=== PATIENT | male | born 1965 | race Caucasian/White ===

== ENCOUNTER 2021-03-19 19:06 | Inpatient (IN) | payer MEDICAID, SELFPAY ==
[~2021-03-19] VITALS: Ht 177.8 cm; Wt 84.0 kg
[2021-03-19 19:12] VITALS: BP_SYST 136
--- NOTE | 2021-03-19 19:45 | NUR ---
PT IN RADIOLOGY
--- NOTE | 2021-03-19 20:00 | NUR ---
CAME INTO THE ER AND GAVE ADMISSION ORDERS KNOWING I DID NOT HAVE INS. DR. SAHU SAID THAT ITS HIS PATIENT AND HEWANTED TO ADMIT.
--- NOTE | 2021-03-19 20:02 | NUR ---
Patient to ER bed 03 to gown for evaluation. Side rails up.
--- NOTE | 2021-03-19 20:02 | NUR ---
Note marissa in ED - 03/19/21 at 2001 by [id number] Patient to bed 3 to [facility] for evaluation. Side rails up.
--- NOTE | 2021-03-19 20:05 | NUR ---
Patient BIB by BLS/EMS from [facility]. C/O R/O DVT and eval x today. Per reported, patient had abnomal CT scan and R/O DVT and eval with US. A/O,X4, denies pain.
--- NOTE | 2021-03-19 20:14 | NUR ---
Medication reconciliation completed with information provided by facility. Any prior medication reconciliation on file was reviewed and corrected.
[2021-03-19] MEDS ORDERED: SENN-22 PO (20:17)
[2021-03-19] MEDS ORDERED: MOM PO (20:17)
[2021-03-19] MEDS ORDERED: MEGE400O4 PO (20:17)
[2021-03-19] MEDS ORDERED: ISOS30TA85 PO (20:17)
[2021-03-19] MEDS ORDERED: ACET325T PO (20:17)
[2021-03-19] MEDS ORDERED: MULT-1189 PO (20:17)
[2021-03-19] MEDS ORDERED: ZOLP5TAB2 PO (20:17)
[2021-03-19] MEDS ORDERED: DOCU-144 PO (20:17)
[2021-03-19] MEDS ORDERED: ONDA4TAB5 PO (20:17)
[2021-03-19] MEDS ORDERED: DEC4 PO (20:17)
[2021-03-19] MEDS ORDERED: HYDR-3917 PO (20:17)
[2021-03-19] MEDS ORDERED: CAS50 PO (20:17)
--- NOTE | 2021-03-19 20:30 | NUR ---
# 20 gauge angiocath placed to RAC. Use of asceptic technique. Opsite placed over site. Blood return noted. Blood for lab drawn from site. Flushed with 10 cc of normal saline. No evidence of infiltration noted. Patient tolerated well.
--- NOTE | 2021-03-19 20:33 | NUR ---
MRSA and covid swab performed at bedside
[2021-03-19 20:40] LABS: BASOPHILS % (AUTO) 0.1 % (0.0-2.0); EOSINOPHILS % (AUTO) 0.2 % (0.0-4.0); HEMATOCRIT 41.7 % (36-54); HEMOGLOBIN 13.9 g/dL (14.0-18.0); LYMPHOCYTES # (AUTO) 0.7 K/uL (1.0-5.5); MEAN CORPUSCULAR HEMOGLOBIN 31 pg (27-31); MEAN CORPUSCULAR HGB CONC 33 % (32-36); MEAN CORPUSCULAR VOLUME 92 fL (79.0-98.0); MONOCYTES # (AUTO) 0.2 K/uL (0.0-1.0); NEUTROPHILS # (AUTO) 6.8 K/uL (1.8-7.7); NEUTROPHILS % (AUTO) 87.7 % (40.0-70.0); PLATELET COUNT (AUTO) 254 K/uL (130-430); RED BLOOD CELL COUNT(AUTO) 4.53 MIL/uL (4.2-6.2); WHITE BLOOD COUNT (AUTO) 7.8 K/uL (4.8-10.8)
[2021-03-19 20:51] LABS: CALCIUM 9.1 mg/dL (8.4-11.0); CREATININE 0.67 mg/dL (0.55-1.30); POTASSIUM 4.5 mmol/L (3.5-5.1)
[2021-03-19 20:56] LABS: PROTHROMBIN TIME 10.2 SECS (9.5-12.5)
[2021-03-19 21:03] LABS: ALBUMIN 3.9 g/dL (3.4-4.8); TOTAL BILIRUBIN 0.3 mg/dL (0.0-1.0)
--- NOTE | 2021-03-19 21:34 | NUR ---
Patient will be admitted to care of [facility]. Admitted to TELE unit. Will go to room 122A. Belongings list completed. Complete and up to date summary report printed. SBAR report to be given at bedside with opportunity for questions.
--- NOTE | 2021-03-19 22:33 | NUR ---
ADMISSION NOTE Received patient from ER via gurney. Patient admitted with diagnosis of Bilateral Lower Extremity DVT. Patient is awake, alert, oriented X 4. Patient oriented to hospital room, call light, toileting, pain management and safety-teach back done. Patient informed that LORRIE Castellanos will be primary nurse and that their room number is 122A. Personal belongings checked and Belongings List documented. Call light within reach.
--- NOTE | 2021-03-19 22:35 | NUR ---
NOTES PATIENT IN BED, AWAKE, ALERT, ORIENTED, VITALS STABLE. NO PAIN AT THIS TIME. ASSESSMENT DONE AND DOCUMENTED. ORIENTED TO HIS ROOM, PHONE AND CALL LIGHT . NEEDS ATTENDED TO. SAFETY AND FALL MEASURES IN PLACED. CALL LIGHT PLACED WITHIN REACH.
[2021-03-19 22:51] VITALS: BP_SYST 122
[2021-03-20] MEDS ORDERED: ACETAMINOPHEN 325 MG TABLET PO PRN
[2021-03-20] MEDS ORDERED: MILK OF MAGNESIA 30 ML UDC PO PRN
[2021-03-20] MEDS ORDERED: ONDANSETRON 4 MG ODT TAB PO PRN
[2021-03-20] MEDS ORDERED: ZOLPIDEM TARTRATE 5 MG TABLET PO PRN
[2021-03-20] MEDS ORDERED: HYDROcodone/ACETAMIN 5-325 MG TAB (NORCO/ VICODIN) PO PRN
[2021-03-20] MEDS ORDERED: NALOXONE HCL 0.4 MG/ML AMP (NARCAN) IVP PRN
[2021-03-20] MEDS ORDERED: *LOVENOX 1MG/KG Q12H/PHARMACY XX ONE (00:15)
[2021-03-20] MEDS ORDERED: ENOXAPARIN SODIUM 80 MG/0.8 ML SYRINGE SUBCUT ONE (00:15)
--- NOTE | 2021-03-20 02:10 | NUR ---
ROUNDS PATIENT ASLEEP, RESPIRATIONS EVEN AND UNLABORED, WILL CONTINUE TO MONITOR.
--- NOTE | 2021-03-20 08:00 | NUR ---
Initial notes Awake and oriented, denies any pain or discomfort. uses urinal. Safety precaution observed. Enc to call for help as needed. Call light within reach,
[2021-03-20 08:06] VITALS: BP_SYST 107
[2021-03-20] MEDS: MEGESTROL ACETATE 400 MG/10 ML UDC PO SCH ×2 (08:27→20:28)
[2021-03-20] MEDS: DECADRON 4 MG TABLET PO SCH ×2 (08:27→20:28)
[2021-03-20] MEDS: MULTIVITS,CA,MINERALS/IRON/FA 1 TABLET PO SCH (08:27)
[2021-03-20] MEDS: DOCUSATE SODIUM 100 MG CAPSULE PO SCH ×2 (08:27→20:28)
[2021-03-20] MEDS: ISOSORBIDE MONONITRATE 30 MG TAB.ER.24H PO SCH (08:28)
[2021-03-20] MEDS: BICALUTAMIDE 50 MG TABLET PO SCH (08:28)
--- NOTE | 2021-03-20 11:30 | NUR ---
Notes resting in bed, denies any pain or discomfort. Enc to call for help as needed.
[2021-03-20] MEDS ORDERED: ENOXAPARIN SODIUM 100 MG/ML SYRINGE SUBCUT SCH (12:15)
[2021-03-20 12:24] VITALS: BP_SYST 117
--- NOTE | 2021-03-20 14:00 | NUR ---
Notes Resting, no complains
[2021-03-20 18:06] VITALS: BP_SYST 134
--- NOTE | 2021-03-20 18:29 | NUR ---
Notes Eating dinner, denies any pain.
--- NOTE | 2021-03-20 19:45 | NUR ---
ROUNDS PATIENT IN BED, AWAKE, ALERT, ORIENTED, NOT IN DISTRESS, VITALS STABLE. ASSESSMENT DONE AND DOCUEMNTED. EEDS ATTENDED TO. SAFETY AND FALL MEASURES IN PLACED. BED IN LOW AND LOCKED POSITION. CALL LIGHT PLACED WITHIN REACH.
[2021-03-20] MEDS ORDERED: SENNOSIDES/DOCUSATE SODIUM 1 TAB TABLET(SENOKOT-S) PO SCH (21:00)
--- NOTE | 2021-03-20 21:16 | NUR ---
MEDICATIONS DUE MEDICATIONS GIVEN SCHEDULED, TOLERATED WELL. WILL CONTINUE TO MONITOR.
--- NOTE | 2021-03-21 00:15 | NUR ---
ROUNDS PATIENT ASLEEP, RESPIRATIONS EVEN AND UNLABORED, VITALS STABLE. WILL CONTINUE TO MONITOR.
[2021-03-21 00:39] VITALS: BP_SYST 105
--- NOTE | 2021-03-21 04:10 | NUR ---
PATIENT RESTING: Patient resting quietly. No acute distress noted. Vital signs within normal range.
--- NOTE | 2021-03-21 08:00 | NUR ---
Opening Note Received patient alert and oriented, resting in bed, denies any pain or discomfort. Bed in in lowest position, call alarm within reach, discussed plan of care.
[2021-03-21 08:05] VITALS: BP_SYST 124
[2021-03-21] MEDS: MEGESTROL ACETATE 400 MG/10 ML UDC PO SCH (08:42)
[2021-03-21] MEDS: DOCUSATE SODIUM 100 MG CAPSULE PO SCH (08:42)
[2021-03-21] MEDS: DECADRON 4 MG TABLET PO SCH (08:43)
[2021-03-21] MEDS: ISOSORBIDE MONONITRATE 30 MG TAB.ER.24H PO SCH (08:43)
[2021-03-21] MEDS: BICALUTAMIDE 50 MG TABLET PO SCH (08:53)
[2021-03-21] MEDS: MULTIVITS,CA,MINERALS/IRON/FA 1 TABLET PO SCH (08:53)
[2021-03-21] MEDS ORDERED: APIXABAN 2.5 MG TABLET PO SCH (09:00)
[2021-03-21 12:28] VITALS: BP_SYST 112
[2021-03-21] MEDS ORDERED: APIX5TAB4 PO ×2 (13:46→13:47)
[2021-03-21 13:50] VITALS: BP_SYST 124
--- NOTE | 2021-03-21 14:12 | NUR ---
Patient accepted at [facility] and [address] Number for report is [phone]. Transportation is by [facility] [phone] [place] # [place] [id number] will call with transportation provider and time of transport. discharge disposition [id number]
--- NOTE | 2021-03-21 18:10 | NUR ---
PT TRANSFERRED Report given to Sid farah [facility]. Transfer packet with Transfer Orders and Medication Reconciliation form given to [facility] with report. Exit care provided. [facility] ID band removed, replaced with ID band with pt's name and . IV catheter removed, intact and dressing applied, no active bleeding. All belongings sent with patient. Patient left floor via gurney escorted by [facility] in no distress.
[2021-03-21 18:18] VITALS: BP_SYST 121
== END 2021-03-21 18:10 | DRG 197 ==
LOC: SED 19:06 → STU 20:20
PROVIDERS: ADMIT Family Medicine; ATTEND Family Medicine
DX: I82.403 Acute embolism and thrombosis of unspecified deep veins of lower extremity, bilateral (principal); D64.9 Anemia, unspecified; J45.909 Unspecified asthma, uncomplicated; I10 Essential (primary) hypertension; Z20.822 Contact with and (suspected) exposure to COVID-19; Z79.01 Long term (current) use of anticoagulants; Z85.46 Personal history of malignant neoplasm of prostate
CPT/HCPCS: 36415; 80053; 85025; 85379; 85610-TC; 85730-TC; 87081; 93970; 99285; G0378; J1650; J8540